=== PATIENT | male | born 1975 | race Caucasian/White ===

== ENCOUNTER → 2019-02-21 | Day surgery (SDC) | payer OTHER ==
--- NOTE | 2019-02-21 13:39 | RADIOLOGY REPORT (SQ) ---
EXAM DESCRIPTION: FLUORO/NEEDLE PLACEMENT; ARTHRO SHOULDER INJECTION COMPLETED DATE/TIME: 02/21/2019 1:28 pm REASON FOR STUDY: S43.432A SUPERIOR GLENOID LABRUM LESION OF LEFT SHOULDER, INIT ENCNTR S43.432A QUARLES PERIOR GLENOID LABRUM LESION OF LEFT SHOULDER, IN COMPARISON: None. FLUOROSCOPY TIME: 6 seconds 1 images saved to PACS. LIMITATIONS: None. PROCEDURE: Procedure, risks, benefits and alternative explained to patient who then gave written con sent. The left shoulder was marked and a time-out was called for correct marking verification. Post erior entry site marked using fluoroscopic guidance. Shoulder prepped and draped using sterile techn ique. Local anesthesia achieved using 1% lidocaine injection. 22 gauge spinal needle introduced into the joint space under direct fluoroscopic visualization. Non-ionic contrast instilled to confirm in tra-articular position. Additional dilute non-ionic contrast instilled. Needle removed and entry si te covered with sterile bandage. No immediate complications noted. TECHNIQUE: Digital images acquired during fluoroscopy and stored on PACS. Patient immediately take n to the CT suite for additional imaging. INJECTION LOCATION: Posterior left shoulder. CONTRAST TYPE AND AMOUNT: 10 mL adults Dotarem/saline solution IMPRESSION: SUCCESSFUL NEEDLE PLACEMENT AND INJECTION FOR LEFT SHOULDER MR ARTHROGRAM USING POSTERIO R APPROACH. COMMENT: Quality ID [id number]: Final reports for procedures using fluoroscopy that document radiation exp osure indices, or exposure time and number of fluorographic images (if radiation exposure indices are not available) TECHNICAL DOCUMENTATION: JOB ID: [id number] [employer]- All Rights Reserved Reading location - IP/workstation name: [email or web address]
--- NOTE | 2019-02-21 14:20 | RADIOLOGY REPORT (SQ) ---
EXAM DESCRIPTION: MRI LT UPPER JOINT WITH COMPLETED DATE/TIME: 02/21/2019 1:54 pm REASON FOR STUDY: S43.432A SUPERIOR GLENOID LABRUM LESION OF LEFT SHOULDER, INIT ENCNTR S43.432A QUARLES PERIOR GLENOID LABRUM LESION OF LEFT SHOULDER, IN COMPARISON: None. TECHNIQUE: Left shoulder images acquired and stored on PACS. Oblique coronal, oblique sagittal, and axial imaging to include fat sensitive sequences as T1, water sensitive sequences as FST2/STIR, and c ontrast sensitive sequences as FST1. LIMITATIONS: Motion artifact. FINDINGS: JOINT DISTENTION: Adequate distention for interpretation. BONE MARROW AND CORTEX: No significant marrow abnormality. AC JOINT: Type II acromion. Moderate AC joint arthropathy. GLENOHUMERAL JOINT: Intact. ROTATOR CUFF: Partial thickness articular surface tear of the infraspinatus. No full-thickness tear. LABRUM AND BICEPS LABRAL COMPLEX: Intact as visualized. No paralabral cysts. INFERIOR LABRAL COMPLEX: Anterior and posterior paralabral cysts. Difficult to further characterize tear due to motion. ADJACENT SOFT TISSUES: No masses or nodes. OTHER: No other significant finding. IMPRESSION: 1. Limitations due to motion. Anterior and inferior paralabral cysts. Difficult to further characte rize the tear. 2. Partial-thickness tear of the infraspinatus. 3. Moderate AC joint arthropathy. Periarticular marrow edema. TECHNICAL DOCUMENTATION: JOB ID: [id number] [employer]- All Rights Reserved Reading location - IP/workstation name: [email or web address]
== END ==
LOC: RAD 12:30 → EDSTATUS 14:12
PROVIDERS: ATTEND Specialist/Technologist Athletic Trainer
DX: M19.012 Primary osteoarthritis, left shoulder (principal); S43.492A Other sprain of left shoulder joint, initial encounter; X58.XXXA Exposure to other specified factors, initial encounter; M25.812 Other specified joint disorders, left shoulder
CPT/HCPCS: 73222; 77002; 23350; A9576